=== PATIENT | female | born 1990 | race Caucasian/White ===

== ENCOUNTER 2018-06-28 15:38 | Emergency (ER) | payer OTHER ==
--- NOTE | 2018-06-28 15:49 | UC ---
Abdominal Pain Female HPI - HPI Summary HPI Summary: 27 yo female presents with pelvic pain. She tells me that she has had issues with heavy periods and menstrual pain in the past and had a transvaginal US about 2.5 years ago that was normal. She has not been on any control for a long time. About 5 weeks ago she started a new OBC due to heavy periods and menstrual pain. She was feeling well until about 2 weeks ago when she developed pelvic pain around her "uterus". States it feels like her "uterus wants to explode". LMP was 5 weeks ago before starting OBC. Currently she is having some spotting for the last 3 days. Has been taking ibuprofen every 6 hours with little relief. Denies any recent sexual activity or concern for STI. Denies dysuria, vaginal discharge/rash/itching. Denies n/v/d/c, back or flank pain. She does have an OBGYN, but has not seen them in over a year. - History of Current Complaint Chief Complaint: UCGU Stated Complaint: ABDOMINAL PAIN Time Seen by Provider: 06/28/18 15:48 Hx Obtained From: Patient Hx Last Menstrual Period: 05/30/18 Onset/Duration: Gradual Onset Timing: Constant Severity Initially: Mild Severity Currently: Moderate Pain Intensity: 7 Pain Scale Used: 0-10 Numeric Allergies/Adverse Reactions: Allergies Allergy/AdvReac Type Severity Reaction Status Date / Time No Known Allergies Allergy Verified 06/28/18 15:46 Home Medications: Home Medications l-Norgest/E.estradiol-E.estrad [Camrese Lo Tablet] 1 tab PO DAILY 06/28/18 [ History Confirmed 06/28/18] PMH/Surg Hx/FS Hx/Imm Hx Endocrine History: Thyroid Disease - Surgical History Surgical History: Yes Surgery Procedure, Year, and Place: tonsilectomy 2008 - Family History Known Family History: Positive: None - Social History Occupation: Employed Full-time Lives: With Family Alcohol Use: Weekly Alcohol Amount: 3 drinks Substance Use Type: None Smoking Status (MU): Never Smoked Tobacco Review of Systems All Other Systems Reviewed And Are Negative: Yes Constitutional: Positive: Negative Skin: Positive: Negative Respiratory: Positive: Negative Cardiovascular: Positive: Negative Gastrointestinal: Positive: Abdominal Pain Genitourinary: Positive: Abnormal Bleeding Neurovascular: Positive: Negative Neurological: Positive: Negative Psychological: Positive: Negative Physical Exam - Summary Physical Exam Summary: GENERAL: NAD. WDWN. No pain distress. SKIN: No rashes, sores, lesions, or open wounds. NECK: Supple. Nontender. No lymphadenopathy. CHEST: CTAB. No r/r/w. No accessory muscle use. Breathing comfortably and in no distress. CV: RRR. Without m/r/g. Pulses intact. Cap refill <2seconds ABDOMEN: Mild TTP over bladder/uterus. Soft. No distention or guarding. No organomegaly. No CVA tenderness. Bowel sounds present NEURO: Alert. PSYCH: Age appropriate behavior. Triage Information Reviewed: Yes Vital Signs: Initial Vital Signs Temp 99.1 F 06/28/18 15:41 Pulse 91 06/28/18 15:41 Resp 12 06/28/18 15:41 BP 111/59 06/28/18 15:41 Pulse Ox 100 06/28/18 15:41 Laboratory Tests 06/28/18 06/28/18 17:53 17:55 POC Urine Color Yellow POC Urine Clarity Other POC Urine pH 7.0 POC Ur Specif [place] 1.015 POC Urine Protein Negative POC Ur Glucose (UA) Negative POC Urine Ketones Negative POC Urine Blood 2+ A POC Urine Nitrite Negative POC Urine Bilirubin Negative POC Urine Urobilinogen 0.2 POC U Leukocyte Esteras Negative POC Ur Test Negative Vital Signs Reviewed: Yes Abd Pain Female Course/Dx - Course Course Of Treatment: Declined pelvic exam today. UA and negative. US transvaginal: IMPRESSION: Normal and age-appropriate pelvic ultrasound. Suspect Dysmenorrhea. In the clinic she was given toradol IM. Advised to f/u with her OBGYN for further evaluation. - Differential Dx/Diagnosis Provider Diagnosis: Dysmenorrhea Discharge - Sign-Out/Discharge Documenting (check all that apply): Patient Departure All imaging exams completed and their final reports reviewed: Yes - Discharge Plan Condition: Stable Disposition: HOME Patient Education Materials: Dysmenorrhea (ED) Referrals: Wendy Menjivar MD [Primary Care Provider] - Additional Instructions: If you develop a fever, shortness of breath, chest pain, new or worsening symptoms - please call your PCP or go to the ED immediately. Your urine and ultrasound results were normal today. I recommend you schedule an appointment with your OBGYN for further evaluation and treatment. - Billing Disposition and Condition Condition: STABLE Disposition: Home - Attestation Statements Provider Attestation: Per institutional requirements, I have reviewed the chart, however, I was not consulted specifically or made aware of this patient by the midlevel provider. I did not personally evaluate, interact with , or disposition this patient.
[2018-06-28] MEDS ORDERED: Ketorolac INJ* 60 MG/2 ML VIAL IM ONE (18:56)
[2018-06-28 18:57] VITALS: BP 113/68
== END 2018-06-28 19:12 | disposition home or self-care (01) ==
LOC: UCEAST 15:38
DX: N94.6 Dysmenorrhea, unspecified (principal); R10.2 Pelvic and perineal pain; N92.1 Excessive and frequent menstruation with irregular cycle; Z32.02 Encounter for pregnancy test, result negative; Z79.3 Long term (current) use of hormonal contraceptives; E07.9 Disorder of thyroid, unspecified
CPT/HCPCS: 76830; 81003; 84702; 96372; 99211; G0463; J1885